=== PATIENT | female | born 1950 | race Caucasian/White ===

== ENCOUNTER 2024-05-10 01:50 | Observation (INO) | payer SELFPAY ==
[2024-05-10] MEDS ORDERED: METOPROLOL TARTRATE 25 MG TAB ONE ×2 (09:53→19:50)
[2024-05-10] MEDS ORDERED: lisinopriL 10 MG TAB ONE ×2 (09:53→19:49)
[2024-05-10] MEDS ORDERED: ATORVASTATIN 40 MG TAB ONE (09:53)
[2024-05-10] MEDS ORDERED: ASPIRIN 81 MG ONE (09:53)
[2024-05-10] MEDS ORDERED: INSULIN ASPART (NovoLOG) 100 UNIT/ML VIAL SQ ONE (18:10)
[2024-05-10] MEDS ORDERED: NITROGLYCERIN OINT 1 INCH/GM PACKET TOPICAL ONE (19:48)
[2024-05-11] MEDS ORDERED: ACETAMINOPHEN TAB 325 MG TAB ONE (04:32)
[2024-05-11] MEDS ORDERED: INSULIN ASPART (NovoLOG) 100 UNIT/ML VIAL SQ ONE ×2 (06:22→12:49)
[2024-05-11] MEDS ORDERED: PANTOPRAZOLE 40 MG TABLET PO ONE (07:55)
[2024-05-11] MEDS ORDERED: lisinopriL 5 MG TAB ONE (07:55)
[2024-05-11] MEDS ORDERED: ATORVASTATIN 40 MG TAB ONE (07:56)
[2024-05-11] MEDS ORDERED: ASPIRIN 81 MG ONE (07:57)
[2024-05-11] MEDS ORDERED: METOPROLOL TARTRATE 25 MG TAB ONE (07:57)
--- NOTE | 2024-06-06 09:15 | XR ---
EXAMINATION TYPE: XR chest 2V DATE OF EXAM: 06/06/2024 8:51 AM CLINICAL INDICATION: Female, 74 years old with history of CHEST PAIN; COMPARISON: None TECHNIQUE: XR chest 2V Frontal view of the chest. FINDINGS: Lungs/Pleura: Low lung volumes are present. There is no evidence of pleural effusion, focal consolida tion, or pneumothorax. Pulmonary vascularity: Unremarkable. Heart/mediastinum: Cardiomediastinal silhouette is unremarkable. Two lead cardiac conduction device o verlying the left hemithorax with lead tips projecting over the right ventricle and right atrium. Musculoskeletal: No acute osseous pathology. Other findings: None IMPRESSION: Low lung volumes with a generalized hazy appearance which could represent atelectasis versus pulmonar y edema correlate with serum BNP.
== END 2024-05-11 13:56 | disposition home or self-care (01) ==
LOC: 6NMEDSUR 01:50 → UNDODISOB 13:56
PROVIDERS: ADMIT Internal Medicine Gastroenterology; ATTEND Internal Medicine Gastroenterology
DX: R07.89 Other chest pain (principal); M25.519 Pain in unspecified shoulder; E11.65 Type 2 diabetes mellitus with hyperglycemia; I10 Essential (primary) hypertension; E78.5 Hyperlipidemia, unspecified; I25.10 Atherosclerotic heart disease of native coronary artery without angina pectoris; I25.2 Old myocardial infarction; Z95.0 Presence of cardiac pacemaker; Z79.82 Long term (current) use of aspirin; Z79.899 Other long term (current) drug therapy
CPT/HCPCS: 71046; 80061; 83036